=== PATIENT | male | born 1980 | race Caucasian/White ===

== ENCOUNTER 2017-06-12 22:24 | Emergency (ER) | payer SELFPAY ==
[2017-06-12 22:36] VITALS: BP 136/87
[2017-06-12] MEDS ORDERED: LORATADINE 10 MG TABLET PO ONE (22:46)
[2017-06-12] MEDS ORDERED: GUAIFENESIN 600 MG TABLET.SA PO ONE (22:46)
[2017-06-12] MEDS ORDERED: PSEUDOEPHEDRINE HCL 30 MG TABLET PO ONE (22:46)
[2017-06-12] MEDS ORDERED: ACETAMINOPHEN 325 MG TABLET PO ONE (22:46)
--- NOTE | 2017-06-12 23:03 | ER Document Report ---
ED Respiratory Problem - General Chief Complaint: Chest Congestion Stated Complaint: LUNG CONGESTION Time Seen by Provider: 06/12/17 22:46 Mode of Arrival: Ambulatory Information source: Patient Notes: 36-year-old male presents to ED for cough congestion body aches and earaches sinus pain and pressure nasal congestion and nausea last week. He states he is a former smoker, no longer drinks alcohol, no longer uses drugs. 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 TRAVEL OUTSIDE OF THE [place] IN LAST 30 DAYS: No - HPI Patient complains to provider of: Cough Onset: Last week Duration: Continuous Initiating Event: URI Quality of pain: Achy Severity: Moderate Pain Level: 3 Cough: Nonproductive Sputum amount: None Associated symptoms: Chills, Congestion, Cough, Earache, PND, Runny nose, Sinus pain/pressure Similar symptoms previously: Yes Recently seen / treated by doctor: No - Related Data Allergies/Adverse Reactions: No Known Allergies Allergy (Verified 06/12/17 22:36) Past Medical History - General Information source: Patient - Social History Smoking Status: Former Smoker Cigarette use (# per day): No Chew tobacco use (# tins/day): No Smoking Education Provided: No Frequency of alcohol use: None - Strength formally not now Drug Abuse: None - States he used to take drugs but not anymore Occupation: [employer] Lives with: Family Family History: CAD, CVA, DM, Hyperlipidemia, Hypertension, Malignancy. denies : Arthritis, Thyroid Disfunction Patient has suicidal ideation: No Patient has homicidal ideation: No - Past Medical History Cardiac Medical History: Reports: None Pulmonary Medical History: Reports: None EENT Medical History: Reports: None Neurological Medical History: Reports: None Endocrine Medical History: Reports: None Renal/ Medical History: Reports: None Malignancy Medical History: Reports None GI Medical History: Reports: None Musculoskeltal Medical History: Reports None Skin Medical History: Reports None Psychiatric Medical History: Reports: None Traumatic Medical History: Reports: None Infectious Medical History: Reports: None Past Surgical History: Reports: Hx Oral Surgery - [place] teeth Review of Systems - Review of Systems Constitutional: Chills, Recent illness EENT: Ear pain, Nose congestion, Nose discharge, Sinus pressure, Sinus discharge Cardiovascular: No symptoms reported Respiratory: Cough Gastrointestinal: No symptoms reported Genitourinary: No symptoms reported Male Genitourinary: No symptoms reported Musculoskeletal: No symptoms reported Skin: No symptoms reported Hematologic/Lymphatic: No symptoms reported Neurological/Psychological: No symptoms reported -: Yes All other systems reviewed and negative Physical Exam - Vital signs Vitals: Temp Pulse Resp BP Pulse Ox 99.8 F 103 H 20 136/87 H 97 06/12/17 22:35 06/12/17 22:35 06/12/17 22:35 06/12/17 22:35 06/12/17 22:35 Interpretation: Normal - General General appearance: Appears well, Alert - HEENT Head: Normocephalic, Atraumatic Eyes: Normal Pupils: PERRL Ears: Normal External canal: Normal Tympanic membrane: Normal Sinus: Frontal, Tenderness Nasal: Purulent discharge, Swelling Mouth/Lips: Normal Mucous membranes: Normal Pharynx: Post nasal drainage Neck: Normal - Respiratory Respiratory status: No respiratory distress Chest status: Nontender Breath sounds: Nonproductive cough. No: Productive cough, Rales, Rhonchi, Stridor, Wheezing Chest palpation: Normal - Cardiovascular Rhythm: Regular Heart sounds: Normal auscultation Murmur: No - Abdominal Inspection: Normal Distension: No distension Bowel sounds: Normal Tenderness: Nontender Organomegaly: No organomegaly - Back Back: Normal, Nontender - Extremities General upper extremity: Normal inspection, Nontender, Normal color, Normal ROM , Normal temperature General lower extremity: Normal inspection, Nontender, Normal color, Normal ROM , Normal temperature, Normal weight bearing. No: Darvin's sign - Neurological Neuro grossly intact: Yes Cognition: Normal Orientation: AAOx4 [place] Coma Scale Eye Opening: Spontaneous [place] Coma Scale Verbal: Oriented [place] Coma Scale Motor: Obeys Commands Milla Coma Scale Total: 15 Speech: Normal Motor strength normal: LUE, RUE, LLE, RLE Sensory: Normal - Psychological Associated symptoms: Normal affect, Normal mood - Skin Skin Temperature: Warm Skin Moisture: Dry Skin Color: Normal Course - Re-evaluation Re-evalutation: 06/12/17 23:08 Assessment assessment consistent with the upper respiratory infection. Patient was treated in the emergency room with Claritin, Sudafed, Mucinex, and Tylenol. Patient was given instructions on Flonase nasal saline spray and salt and soda solution gargles. He was also given instructions on Lysol and Clorox wipes throughout the house and other ways to break the cycle of this virus. Patient to follow-up with his primary doctor. - Vital Signs Vital signs: Temp Pulse Resp BP Pulse Ox 99.8 F 103 H 20 136/87 H 97 06/12/17 22:35 06/12/17 22:35 06/12/17 22:35 06/12/17 22:35 06/12/17 22:35 Discharge - Discharge Clinical Impression: URI (upper respiratory infection) Qualifiers: URI type: unspecified URI Qualified Code(s): J06.9 - Acute upper respiratory infection, unspecified High blood pressure Qualifiers: Hypertension type: unspecified Qualified Code(s): I10 - Essential (primary) hypertension Condition: Stable Disposition: HOME, SELF-CARE Instructions: Family Physicians / Practices Additional Instructions: UPPER RESPIRATORY ILLNESS: You have a viral infection of the respiratory passages -- a "cold." This common infection causes nasal congestion, drainage, and often sore throat and cough. It is highly contagious. The disease usually lasts about 10 to 14 days. There is no "cure" for the viral infection -- it must run its course. If there is a complication, such as bacterial infection in the nose, sinuses, middle ear, or bronchial tubes, antibiotics may be required. The antibiotics won't affect the virus. Drink plenty of fluids. A humidifier may help. An expectorant medication or decongestant may make you more comfortable. Use acetaminophen or ibuprofen for fever or aches. See the doctor if fever persists over two days, if there is any significant worsening of your symptoms, or if you simply fail to improve as expected. DECONGESTANT MEDICATION: A decongestant medicine has been suggested. Often this medicine is combined in the same tablet with an antihistamine or expectorant. This type of medicine is helpful in treating a bad cold or sinus condition, as well as in treatment of the nasal congestion of hay fever. It is not of much benefit for lung infections. Decongestant medicines are related to stimulants. They can cause an increase in blood pressure and heart rate. Persons with heart disease and high blood pressure should not take decongestants without discussing this with the physician. If you develop palpitations, chest pain, headache, or tremors, stop the medicine and consult your physician. COUGH-SUPPRESSANT & EXPECTORANT MEDICATION: You are to use a cough medication as needed for relief of symptoms. This medicine is a combination of an expectorant (to make the mucous thinner and more easily "coughed up") and a cough suppressant (to reduce the frequency of coughing). The cough-suppressant medicine is related to narcotics. You may experience mild nausea and sleepiness. Some patients who are very sensitive to narcotics may have stomach pain from this medicine. Taking the medicine with food reduces these side effects. Do not drive or work with machinery until you know how this medicine affects you. The expectorant should have no side effects. Iodine-containing expectorants (such as organidin) should not be taken by persons with active thyroid disease unless approved by your doctor. Call the doctor if you develop shortness of breath, hives, rash, itching, lightheadedness, or severe nausea and vomiting. USE OF ACETAMINOPHEN (Tylenol): Acetaminophen may be taken for pain relief or fever control. It's much safer than aspirin, offering a wider range of "safe" dosages. It is safe during . Some brand names are Tylenol, Panadol, Datril, Anacin 3, Tempra, and Liquiprin. Acetaminophen can be repeated every four hours. The following are maximum recommended dosages: >89 pounds or adults 650 mg to 900 mg Acetaminophen can be repeated every four hours. Maximum dose not to exceed 4000 mg a day. Ibuprofen Ibuprofen is an excellent, safe drug for pain control. In addition, it has potent antiinflammatory effects which are beneficial, especially in the treatment of injuries, arthritis, or tendonitis. It's best to take ibuprofen with food. Persons with ulcer disease or allergy to aspirin should notify their physician of this before taking ibuprofen. Take the medication exactly as prescribed. Don't take additional doses unless instructed to do so by your doctor. If you develop wheezing, shortness of breath, hives, faintness, stomach pain, vomiting, or dark black stools, return for re-evaluation at once. You were treated with Claritin 10 mg, Sudafed 30 mg, Mucinex 600 mg, and Tylenol 650 mg in the emergency room. These are all [id number] and you can buy this at the pharmacy. Other medications that will also help you are Flonase 2 sprays each nostril twice a day and salt and soda solution gargles. Saline nasal spray can also help. Salt and soda solution 1 quart of water 1 tablespoon of salt 1 teaspoon of baking soda Mixed 3 ingredients together and boil for 1 minute Placed in a covered quart jar Use 1/2 ounce of cold solution to gargle 3 times a day FOLLOW-UP CARE: If you have been referred to a physician for follow-up care, call the physician s office for an appointment as you were instructed or within the next two days. If you experience worsening or a significant change in your symptoms, notify the physician immediately or return to the Emergency Department at any time for re-evaluation. Forms: Elevated Blood Pressure, Return to Work
== END 2017-06-12 23:03 | disposition home or self-care (01) ==
LOC: ER 22:24
DX: J06.9 Acute upper respiratory infection, unspecified (principal); I10 Essential (primary) hypertension; R09.89 Other specified symptoms and signs involving the circulatory and respiratory systems; R05 Cough; M79.1 Myalgia; H92.09 Otalgia, unspecified ear; R51 Headache; R09.81 Nasal congestion; R11.0 Nausea; Z87.891 Personal history of nicotine dependence
CPT/HCPCS: 99283